=== PATIENT | male | born 1990 | race Caucasian/White ===

== ENCOUNTER 2020-11-20 19:11 | Emergency (ER) | payer OTHER ==
[2020-11-20] MEDS ORDERED: traMADol 50 MG Tab PO ONE (19:49)
--- NOTE | 2020-11-20 19:52 | EDM.PDOC ---
ED HPI GENERAL MEDICAL PROBLEM - General Chief Complaint: Upper Extremity Injury/Pain Stated Complaint: RIGHT HAND HURTS Time Seen by Provider: 11/20/20 19:49 Source of Information: Reports: Patient History Limitations: Reports: No Limitations - History of Present Illness INITIAL COMMENTS - FREE TEXT/NARRATIVE: Punched a wall. has pain and deformity of the right hand right hand Pain Score (Numeric/FACES): 7 - Related Data Allergies Allergy/AdvReac Type Severity Reaction Status Date / Time No Known Allergies Allergy Verified 11/20/20 19:27 Home Meds: Home Meds metFORMIN HCl [Metformin HCl] 1,000 mg PO DAILY 11/20/20 [History] Past Medical History Endocrine/Metabolic History: Reports: Diabetes, Type II Social & Family History - Caffeine Use Caffeine Use: Reports: Coffee - Recreational Drug Use Recreational Drug Use: No Review of Systems - Review of Systems Review Of Systems: Comprehensive ROS is negative, except as noted in HPI. ED EXAM, GENERAL - Physical Exam Exam: See Below Free Text/Narrative:: Deformity right 4 metacarpal. Exam Limited By: No Limitations General Appearance: Alert, WD/WN Course - Vital Signs Last Recorded V/S: Last Vital Signs Temp 97.7 F 11/20/20 19:11 Pulse 96 11/20/20 19:11 Resp 17 11/20/20 19:11 BP 150/102 H 11/20/20 19:11 Pulse Ox 96 11/20/20 19:11 - Orders/Labs/Meds Orders: Active Orders 24 hr Category Date Time Status Hand Comp Min 3V Rt [CR] Stat Exams 11/20/20 19:22 Taken Departure - Departure Time of Disposition: 19:50 Disposition: Home, Self-Care 01 Condition: Good Clinical Impression: Fracture of metacarpal bone - Discharge Information Referrals: PCP,None [Primary Care Provider] - Sepsis Event Note (ED) - Evaluation Sepsis Screening Result: No Definite Risk - Focused Exam Vital Signs: Vital Signs Temp Pulse Resp BP Pulse Ox 11/20/20 19:11 97.7 F 96 17 150/102 H 96 - Problem List & Annotations (1) Fracture of metacarpal bone SNOMED Code(s): 397985535 Code(s): S62.309A - UNSP FRACTURE OF UNSP METACARPAL BONE, INIT FOR CLOS FX Status: Acute Current Visit: Yes Qualifiers: Encounter type: initial encounter Metacarpal bone: fourth Fracture type: closed Metacarpal location: base Fracture alignment: nondisplaced Laterality: right Qualified Code(s): S62.344A - Nondisplaced fracture of base of fourth metacarpal bone, right hand, initial encounter for closed fracture - Problem List Review Problem List Initiated/Reviewed/Updated: Yes - My Orders Last 24 Hours: My Active Orders 11/20/20 19:22 Hand Comp Min 3V Rt [CR] Stat - Assessment/Plan Last 24 Hours: My Active Orders 11/20/20 19:22 Hand Comp Min 3V Rt [CR] Stat Plan: Ice ,Elevation.I splinted it. Advised to see Hand Surgeon( referral made). Tramadol prn.
--- NOTE | 2020-11-21 18:38 | CR ---
INDICATION: Pain after punching a wall. RIGHT HAND: Three views of the right hand reveal an oblique fracture through the proximal metaphysis of the 4th metacarpal with fairly severe dorsal angulation of the fracture site shortening the metacarpal. There is also slight medial offset of the distal fracture fragment of approximately 2 mm. Separation of fracture fragments is also noted along with overriding of the fracture fragments producing the shortening effect as well as the angulation dorsally. No other bone or joint abnormality was identified. MTDD
--- NOTE | 2020-11-25 08:00 | ER ---
DATE SEEN: 11/20/2020 ADDENDUM: Please note that I used a fiberglass splint. /[id number] OLIVERIO/DENA
== END 2020-11-20 20:02 | disposition home or self-care (01) ==
LOC: FB.ED 19:11
DX: S62.344A Nondisplaced fracture of base of fourth metacarpal bone, right hand, initial encounter for closed fracture (principal); E11.9 Type 2 diabetes mellitus without complications; Z79.84 Long term (current) use of oral hypoglycemic drugs; W22.8XXA Striking against or struck by other objects, initial encounter
CPT/HCPCS: 29125; 73130-RT; 99283; 99283-25; A9270-GY

== ENCOUNTER 2025-04-03 11:11 | Emergency (ER) | payer OTHER ==
[2025-04-03] MEDS ORDERED: 50% Dextrose in Water 50 ML Syringe IVPUSH PRN (11:32)
[2025-04-03] MEDS: Insulin Regular, Human 100 Units/ML 10 ML Vial SUBCUT STA (11:41)
== END 2025-04-03 11:45 | disposition home or self-care (01) ==
LOC: FB.ED 11:11
DX: E11.65 Type 2 diabetes mellitus with hyperglycemia (principal); Z79.84 Long term (current) use of oral hypoglycemic drugs; Z79.899 Other long term (current) drug therapy
CPT/HCPCS: 82947; 99282; 99283; A9270